=== PATIENT | female | born 1955 | race Caucasian/White ===

== ENCOUNTER 2017-03-11 13:31 | Inpatient (IN) ==
[2017-03-11] MEDS ORDERED: 0.9 % Sodium Chloride 1,000 ML IVC ONE (14:05)
--- NOTE | 2017-03-11 14:07 | Emergency Department Note ---
Disposition Clinical Impression: Hyponatremia, Hypokalemia, Altered mental status UTI (urinary tract infection) Qualifiers: Urinary tract infection type: acute cystitis Hematuria presence: without hematuria Qualified Code(s): N30.00 - Acute cystitis without hematuria Acute renal failure Qualifiers: Acute renal failure type: unspecified Qualified Code(s): N17.9 - Acute kidney failure, unspecified Disposition: Admitted As Inpatient Condition: Fair Altered Mental Status HPI - General Chief Complaint: ED General Medical Stated Complaint: Multiple complaints Time Seen by Provider: 03/11/17 13:48 Source: patient, family Limitations: no limitations Nursing Notes Reviewed: Yes Vital Signs Reviewed: Yes - History of Present Illness HPI Narrative: 61-year-old female presents to the ED with a chief complaint of difficulty walking, confusion and urinary incontinence. She has a history of coronary disease and hypertension. She used to be a heavy drinker but quit about 6 weeks ago. She reports taking very small steps and being off balance. She reports feeling generally weak with very little energy. She reports urinating on herself which is completely new. She has had intermittent fevers around 100 over the last 6 weeks. She denies any headache or blurry vision. She reports some nausea without vomiting or diarrhea. She denies any new neck or back pain. Denies any trauma or injury. She denies any chest pain or dyspnea. She is a daily smoker. Denies any current abdominal pain. - Related Data Home Medications Medication Instructions Recorded Confirmed Albuterol Sulfate [Albuterol 2 puff IH Q4HR PRN 08/12/16 03/11/17 Inhaler] Aspirin 81 mg PO DAILY 08/12/16 03/11/17 Atenolol [Tenormin] 50 mg PO DAILY 08/12/16 03/11/17 Clopidogrel [Plavix] 75 mg PO DAILY 08/12/16 03/11/17 Duloxetine HCl [Cymbalta] 60 mg PO DAILY 08/12/16 03/11/17 Ezetimibe [Zetia] 10 mg PO DAILY 08/12/16 03/11/17 Fenofibrate [Lofibra] 160 mg PO DAILY 08/12/16 03/11/17 Isosorbide MONOnitrate (24 HR) 30 mg PO DAILY 08/12/16 03/11/17 [Imdur] Levothyroxine [Synthroid] 50 mcg PO 0630 08/12/16 03/11/17 Nitroglycerin [Nitrostat] 0.4 mg SL Q5M PRN 08/12/16 03/11/17 Potassium Chloride 20 meq PO DAILY 08/12/16 03/11/17 Ranolazine [Ranexa] 1,000 mg PO BID 08/12/16 03/11/17 hydroCHLOROthiazide 25 mg PO DAILY 08/12/16 03/11/17 [Hydrochlorothiazide] Pravastatin Sodium [Pravachol] 20 mg PO HS 03/11/17 03/11/17 Allergies Allergy/AdvReac Type Severity Reaction Status Date / Time atorvastatin [From Lipitor] AdvReac Muscle Pain Verified 03/11/17 13:32 codeine AdvReac nausea Verified 03/11/17 13:32 vomiting All systems ED: reviewed and negative except as stated. Constitutional: Reports: fever Eyes: Denies: vision change Cardiovascular: Denies: chest pain, syncope Respiratory: Denies: cough, dyspnea Gastrointestinal: Reports: nausea. Denies: abdominal pain, vomiting, diarrhea, melena, hematochezia Genitourinary: Denies: urgency Musculoskeletal: Denies: back pain, neck pain Integumentary: Denies: rash Neurological: Reports: weakness (Generalized without any focality), abnormal gait. Denies: headache, numbness Endocrine: Reports: fatigue Past Medical History - Past Medical History Medical history: Reports: arthritis, coronary artery disease, hypertension, myocardial infarction, other Psychiatric history: Reports: anxiety, depression - Social History Smoking Status: Current every day smoker Smokeless Tobacco Status: No Alcohol use: Reports: occasionally Drug use: Reports: none Physical Exam General: Patient is awake, alert and oriented 3, she does appear slightly confused Cardiovascular: Regular rate and rhythm. S1, S2. No murmurs, rubs or gallops. Respiratory: Breath sounds clear bilaterally. No wheezing, rales or rhonchi. No resp distress Abdomen: Abdomen is soft without any guarding, rebound or rigidity. She has no tenderness anywhere on exam. She does have palpable liver in the right upper quadrant. No other palpable organomegaly. No hernias palpated. Normal bowel sounds throughout. Eyes: Pupils equally round and reactive to light, extraocular muscles intact, scleral icterus HENT: Normocephalic, no signs of head injury. No oral mucosal lesions. Moist mucous membranes Neuro: Cranial nerves intact. No motor or sensory deficit. Musculoskeletal: No joint tenderness or swelling Vascular: Normal DP and PT pulses bilaterally. Skin: Skin appears slightly jaundiced. No lesions or diaphoresis. Psych: Appropriate - General Limitations: no limitations General appearance: alert, in no apparent distress Course Course Narrative: Presents with unsteady gait, urinary incontinence and some confusion. CT scan of the head shows no intracranial abnormality. Particularly no evidence of normal pressure hydrocephalus. She was a drinker so we also considered Warnekes encephalopathy and gave her a dose of thiamine in the emergency department. There is no ophthalmoplegia on examination but she does seem a bit off balance and confused. She denies any headache, fevers or neck pain. Her labs reveal leukocytosis at 16,000. Blood pressure is borderline around 105 systolic responds to fluids. She is not tachypnic, tachycardic or febrile. Chest x-ray shows no evidence of infection. Urinalysis shows nitrite positive urine with too numerous to count white blood cells. She denies any flank pain or anything to suggest overlying ureterolithiasis. This may be causing her urinary incontinence. We started her on IV Rocephin, IV fluids in the emergency department. Patient is hyponatremic at 121 which could certainly cause some neurologic symptoms as well. Normal saline at this time. She is also hypokalemic with a potassium of 3.1. She is in acute renal insufficiency with a creatinine of 2.0. Patient certainly needs further monitoring and management for her renal insufficiency, leukocytosis with UTI, hyponatremia, hyperkalemia. I discussed with the on-call hospitalist nurse practitioner, Daria who accepts for admission. No further orders at this time Vital Signs Temperature 97.5 F L 03/11/17 13:33 Pulse Rate 82 03/11/17 13:33 Respiratory Rate 18 03/11/17 13:33 Blood Pressure 99/57 03/11/17 13:33 O2 Sat by Pulse Oximetry 0 03/11/17 13:33 Temperature 98.3 F 03/13/17 07:10 Pulse Rate 73 03/13/17 07:10 Respiratory Rate 16 03/13/17 07:10 Blood Pressure 94/49 03/13/17 07:10 O2 Sat by Pulse Oximetry 95 03/13/17 07:10 Oxygen Delivery Oxygen Delivery Room Air Altered Mental Status - Lab Data Result diagrams: 03/12/17 00:44 03/13/17 04:54 Lab Results 03/11/17 03/11/17 03/11/17 Range/Units 13:44 13:52 13:52 WBC 16.1 H (4.3-11.1) K/mcL RBC 3.46 L (3.82-4.97) M/mcL Hgb 11.0 L (11.5-15.4) g/dL Hct 31.1 L (35.3-44.9) % MCV 89.9 (83.0-100.0) fL MCH 31.8 (28.0-33.3) pg MCHC 35.4 (31.6-35.5) g/dL RDW 14.7 H (11.5-14.5) % Plt Count 451 H (140-400) K/mcL MPV 10.2 (9.4-12.4) fL Immature Gran % 3.8 (0-4) % Seg Neutrophils % 84.2 % Lymphocytes % 3.5 % Monocytes % 8.3 % Eosinophils % 0.1 % Basophils % 0.1 % Neutrophils # 13.6 H (1.6-8.9) K/mcL Lymphocytes # 0.6 (0.6-4.6) K/mcL Monocytes # 1.3 (0.0-1.3) K/mcL Eosinophils # 0.0 (0.0-0.6) K/mcL Basophils # 0.0 (0.0-0.2) K/mcL Sodium 121 L (136-145) mEq/L Potassium 3.1 L (3.5-4.5) mEq/L Chloride 89 L (98-109) mEq/L Carbon Dioxide 16 L (19-29) mEq/L BUN 47 H (7-20) mg/dL Creatinine 2.01 H (0.57-1.11) mg/dL Est GFR ( Amer) 31 L (> 60) Est GFR (Non-Af Amer) 25 L (> 60) BUN/Creatinine Ratio 23 (6-26) Glucose 100 H (70-99) mg/dL POC Glucose 89 (58-89) Calculated Osmolality 264 L (280-300) Calcium 8.8 (8.6-10.8) mg/dL Magnesium (1.6-2.6) mg/dL Total Bilirubin 1.3 H (0.2-1.2) mg/dL Direct Bilirubin 1.1 H (0.0-0.5) mg/dL Indirect Bilirubin 0.2 (0.0-1.2) mg/dL AST 15 (5-34) Units/L ALT 8 (0-55) Units/L Alkaline Phosphatase 163 H (38-126) Units/L Ammonia (18-72) mcmol/L Serum Total Protein 7.4 (6.0-8.3) g/dL Albumin 2.0 L (3.5-5.0) g/dL Globulin 5.4 H (2.4-3.5) g/dL Albumin/Globulin Ratio 0.4 L (1.1-2.2) TSH (0.350-4.840) mcIU/mL Urine Color (Yellow) Urine Clarity (Clear) Urine pH (5.0-8.0) pH Units Ur Specific [place] (1.010-1.025) Urine Protein (Neg-Trace) mg/dL Urine Glucose (UA) (Normal) mg/dL Urine Ketones (Negative) mg/dL Urine Blood (Negative) Urine Nitrite (Negative) Urine Bilirubin (Negative) Urine Urobilinogen (Normal) mg/dL Ur Leukocyte Esterase (Negative) Urine Microscopic RBC (0-3) per hpf Urine Microscopic WBC (0-3) per hpf Ur Squamous Epith Cells (None-Few) per lpf Urine Bacteria (None-Few) per hpf Ur Culture Indicated? (NO) 03/11/17 03/11/17 03/11/17 Range/Units 13:52 16:59 20:08 WBC (4.3-11.1) K/mcL RBC (3.82-4.97) M/mcL Hgb (11.5-15.4) g/dL Hct (35.3-44.9) % MCV (83.0-100.0) fL MCH (28.0-33.3) pg MCHC (31.6-35.5) g/dL RDW (11.5-14.5) % Plt Count (140-400) K/mcL MPV (9.4-12.4) fL Immature Gran % (0-4) % Seg Neutrophils % % Lymphocytes % % Monocytes % % Eosinophils % % Basophils % % Neutrophils # (1.6-8.9) K/mcL Lymphocytes # (0.6-4.6) K/mcL Monocytes # (0.0-1.3) K/mcL Eosinophils # (0.0-0.6) K/mcL Basophils # (0.0-0.2) K/mcL Sodium 122 L (136-145) mEq/L Potassium 2.8 L (3.5-4.5) mEq/L Chloride 95 L (98-109) mEq/L Carbon Dioxide 12 L (19-29) mEq/L BUN 43 H (7-20) mg/dL Creatinine 1.75 H (0.57-1.11) mg/dL Est GFR ( Amer) 36 L (> 60) Est GFR (Non-Af Amer) 30 L (> 60) BUN/Creatinine Ratio 25 (6-26) Glucose 103 H (70-99) mg/dL POC Glucose (58-89) Calculated Osmolality 265 L (280-300) Calcium 7.9 L (8.6-10.8) mg/dL Magnesium 0.8 L (1.6-2.6) mg/dL Total Bilirubin (0.2-1.2) mg/dL Direct Bilirubin (0.0-0.5) mg/dL Indirect Bilirubin (0.0-1.2) mg/dL AST (5-34) Units/L ALT (0-55) Units/L Alkaline Phosphatase (38-126) Units/L Ammonia 14 L (18-72) mcmol/L Serum Total Protein (6.0-8.3) g/dL Albumin (3.5-5.0) g/dL Globulin (2.4-3.5) g/dL Albumin/Globulin Ratio (1.1-2.2) TSH (0.350-4.840) mcIU/mL Urine Color Yellow (Yellow) Urine Clarity Turbid A (Clear) Urine pH 6.0 (5.0-8.0) pH Units Ur Specific [place] 1.011 (1.010-1.025) Urine Protein 30 H (Neg-Trace) mg/dL Urine Glucose (UA) Normal (Normal) mg/dL Urine Ketones Negative (Negative) mg/dL Urine Blood Small H (Negative) Urine Nitrite Positive A (Negative) Urine Bilirubin Negative (Negative) Urine Urobilinogen Normal (Normal) mg/dL Ur Leukocyte Esterase Large H (Negative) Urine Microscopic RBC 0-3 (0-3) per hpf Urine Microscopic WBC TNTC H (0-3) per hpf Ur Squamous Epith Cells Few (None-Few) per lpf Urine Bacteria Many H (None-Few) per hpf Ur Culture Indicated? YES A (NO) 03/11/17 03/11/17 Range/Units 20:08 21:51 WBC (4.3-11.1) K/mcL RBC (3.82-4.97) M/mcL Hgb (11.5-15.4) g/dL Hct (35.3-44.9) % MCV (83.0-100.0) fL MCH (28.0-33.3) pg MCHC (31.6-35.5) g/dL RDW (11.5-14.5) % Plt Count (140-400) K/mcL MPV (9.4-12.4) fL Immature Gran % (0-4) % Seg Neutrophils % % Lymphocytes % % Monocytes % % Eosinophils % % Basophils % % Neutrophils # (1.6-8.9) K/mcL Lymphocytes # (0.6-4.6) K/mcL Monocytes # (0.0-1.3) K/mcL Eosinophils # (0.0-0.6) K/mcL Basophils # (0.0-0.2) K/mcL Sodium (136-145) mEq/L Potassium (3.5-4.5) mEq/L Chloride (98-109) mEq/L Carbon Dioxide (19-29) mEq/L BUN (7-20) mg/dL Creatinine (0.57-1.11) mg/dL Est GFR ( Amer) (> 60) Est GFR (Non-Af Amer) (> 60) BUN/Creatinine Ratio (6-26) Glucose (70-99) mg/dL POC Glucose 142 H (58-89) Calculated Osmolality (280-300) Calcium (8.6-10.8) mg/dL Magnesium (1.6-2.6) mg/dL Total Bilirubin (0.2-1.2) mg/dL Direct Bilirubin (0.0-0.5) mg/dL Indirect Bilirubin (0.0-1.2) mg/dL AST (5-34) Units/L ALT (0-55) Units/L Alkaline Phosphatase (38-126) Units/L Ammonia (18-72) mcmol/L Serum Total Protein (6.0-8.3) g/dL Albumin (3.5-5.0) g/dL Globulin (2.4-3.5) g/dL Albumin/Globulin Ratio (1.1-2.2) TSH 2.719 (0.350-4.840) mcIU/mL Urine Color (Yellow) Urine Clarity (Clear) Urine pH (5.0-8.0) pH Units Ur Specific [place] (1.010-1.025) Urine Protein (Neg-Trace) mg/dL Urine Glucose (UA) (Normal) mg/dL Urine Ketones (Negative) mg/dL Urine Blood (Negative) Urine Nitrite (Negative) Urine Bilirubin (Negative) Urine Urobilinogen (Normal) mg/dL Ur Leukocyte Esterase (Negative) Urine Microscopic RBC (0-3) per hpf Urine Microscopic WBC (0-3) per hpf Ur Squamous Epith Cells (None-Few) per lpf Urine Bacteria (None-Few) per hpf Ur Culture Indicated? (NO) Attestation Statement - Attestation Attestation: I examined this patient and my medical decision-making was reviewed with the Resident Physician. I agree with the documented findings, disposition and treatment plan as described.
[2017-03-11 14:16] LABS: Basophils % 0.1 %; Eosinophils % 0.1 %; Hematocrit 31.1 % (35.3-44.9); Immature Granulocytes % 3.8 % (0-4); Lymphocytes # 0.6 K/mcL (0.6-4.6); Lymphocytes % 3.5 %; Mean Corpuscular HGB Conc 35.4 g/dL (31.6-35.5); Mean Corpuscular Hemoglobin 31.8 pg (28.0-33.3); Mean Corpuscular Volume 89.9 fL (83.0-100.0); Mean Platelet Volume 10.2 fL (9.4-12.4); Monocytes # 1.3 K/mcL (0.0-1.3); Monocytes % 8.3 %; Neutrophils # 13.6 K/mcL (1.6-8.9); Platelet Count 451 K/mcL (140-400); Red Blood Count 3.46 M/mcL (3.82-4.97); Red Cell Distribution Width 14.7 % (11.5-14.5); Segmented Neutrophils % 84.2 %
[2017-03-11 14:23] LABS: Albumin/Globulin Ratio 0.4 (1.1-2.2); Bilirubin,Direct 1.1 mg/dL (0.0-0.5); Bilirubin,Indirect 0.2 mg/dL (0.0-1.2); Bilirubin,Total 1.3 mg/dL (0.2-1.2); Calcium 8.8 mg/dL (8.6-10.8); Globulin 5.4 g/dL (2.4-3.5); Potassium 3.1 mEq/L (3.5-4.5); Total Protein 7.4 g/dL (6.0-8.3)
[2017-03-11] MEDS: Thiamine (B-1) 100 MG TABLET PO SCH ×2 (16:56→20:41)
[2017-03-11 17:10] LABS: Bilirubin,Urine Negative (Negative); Blood,Urine Small (Negative); Clarity,Urine Turbid (Clear); Color,Urine Yellow (Yellow); Glucose,Urine (UA) Normal (Normal); Ketones,Urine Negative (Negative); Leukocyte Esterase,Urine Large (Negative); Nitrite,Urine Positive (Negative); Protein,Urine 30 mg/dL (Neg-Trace); Specific Gravity,Urine 1.011 (1.010-1.025); Urobilinogen,Urine Normal (Normal)
[2017-03-11 17:20] LABS: Bacteria,Urine Many per hpf (None-Few); Squamous Epithelial Cell,Urine Few per lpf (None-Few); WBC,Urine TNTC per hpf (0-3)
[2017-03-11 17:22] LABS: RBC,Urine 0-3 per hpf (0-3)
[2017-03-11] MEDS ORDERED: 0.9 % Sodium Chloride 1,000 ML IVC SCH (17:30)
[2017-03-11] MEDS ORDERED: Acetaminophen 325 MG TABLET PO STA (17:37)
[2017-03-11] MEDS ORDERED: Naloxone 0.4 MG/ML INJ IVP PRN (19:45)
[2017-03-11] MEDS ORDERED: diazePAM 10 MG/2 ML SYRINGE IVP PRN (19:52)
[2017-03-11] MEDS ORDERED: Acetaminophen 325 MG TABLET PO PRN (19:52)
[2017-03-11] MEDS ORDERED: Ondansetron 4 MG/2 ML VIAL IVP PRN (19:52)
[2017-03-11] MEDS ORDERED: Nitroglycerin 0.4 MG TAB.SUBL SL PRN (20:00)
--- NOTE | 2017-03-11 20:08 | Internal Med History&Physical ---
Date of Encounter: 03/11/17 Time of Encounter: 19:35 Assessment and Plan (1) Hyponatremia Current visit: Yes Status: Acute 1. Essentially no old labs to compare except one level in August, --> 134. 2. I suspect this is multi-factorial -- likely due to HCTZ and alcohol abuse. 3. Will check STAT level and follow closely. 4. Stop HCTZ. 5. Regular diet and monitor sodium level with serial BMP's. 6. May need to proceed with CT chest given smoking history and if sodium does not correct by stopping HCTZ. Will hold off on CT chest for now due to TANVI and need for IV contrast. (2) Weakness Current visit: Yes Status: Acute 1. Monitor closely and may need PT/OT consults in the morning. 2. Likely due to hyponatremia and alcohol abuse. 3. Will order MRI brain in the morning to further evaluate. Recent MRI brain negative (June,). (3) Acute kidney injury Current visit: Yes Status: Acute 1. Pt received saline bolus in ER. 2. Will hold off on further fluids and monitor I/O off HCTZ. 3. If kidney function does not improve, will need nephrology consult. (4) UTI (urinary tract infection) Current visit: Yes Status: Acute 1. Urine culture received in lab. 2. Continue Rocephin daily and adjust per culture results. Qualifiers: Urinary tract infection type: acute cystitis Hematuria presence: without hematuria Qualified Code(s): N30.00 - Acute cystitis without hematuria (5) Alcohol abuse Current visit: Yes Status: Acute 1. Will start on CIWA protocol. 2. MVI, thiamine, Folate. 3. Seizure precautions. (6) DVT prophylaxis Current visit: Yes Status: Acute 1. Heparin SQ. Internal Medicine - H&P: HPI Chief complaint: ataxia; weakness; falling Admitted From: Emergency Dept Plans for Post Hospital Care: Home History of present illness: Ms. Moreira is a 61 year old female who presents with a 3 week history of weakness , frequent falling, and occasional ataxia. Because of persistent symptoms, she came to the ER today for evaluation. She was found to have evidence of UTI, hyponatremia, and leukocytosis. She was given a dose of antibiotics, fluid bolus, and underwent CT scan of the head and chest x-ray. Findings were unremarkable otherwise. She was subsequently admitted to hospitalist service. Upon my assessment of the patient, she is alert, oriented, and in no distress. She does admit to above history. She denies any history of seizures, fevers, focal weakness, numbness, or paralysis. She used to drink alcohol but quit about 2 months ago. She denies any heavy use. However, upon further questioning, she drank about 2-3 drinks per night every night for many years. I suspect her hyponatremia very well may be due to her alcohol abuse as well as her thiazide diuretic. She has been on this diuretic for quite some time and denies any prior history of hyponatremia. She is also a long-time smoker and appears to be euvolemic. Chest x-ray was negative, but she still may warrant CT of the chest rule out underlying malignancy. Past Med Surg Social Fam HX - Past Medical History Attestation: Yes The following information was validated with the patient. Source: patient, old records reviewed Medical history: arthritis, coronary artery disease, hypertension, myocardial infarction Psychiatric history: anxiety, depression - Past Surgical History Surgical History: angioplasty/stent, carotid endarterectomy - Social History Smoking Status: Current every day smoker Smokeless Tobacco Status: No Alcohol use: heavy (quit about 2 months ago) Drug use: none Current living situation: Home, With Family Activity Level: Independent ambulation Recent Out of Country Travel Within the Last 8 Weeks: No - Family History Mother Hx Family Cardiac Disorders: Yes (Hypertension) Hx Family Cancer: Yes (Breast cancer) Father Hx Family Neurologic Disorders: Yes (stroke) Internal Medicine - H&P: Meds Albuterol Sulfate [Albuterol Inhaler] 2 puff IH Q4HR PRN 08/12/16 [History] Aspirin 81 mg PO DAILY 08/12/16 [History] Atenolol [Tenormin] 50 mg PO DAILY 08/12/16 [History] Clopidogrel [Plavix] 75 mg PO DAILY 08/12/16 [History] Duloxetine HCl [Cymbalta] 60 mg PO DAILY 08/12/16 [History] Ezetimibe [Zetia] 10 mg PO DAILY 08/12/16 [History] Fenofibrate [Lofibra] 160 mg PO DAILY 08/12/16 [History] Isosorbide MONOnitrate (24 HR) [Imdur] 30 mg PO DAILY 08/12/16 [History] Levothyroxine [Synthroid] 50 mcg PO 0630 08/12/16 [History] Nitroglycerin [Nitrostat] 0.4 mg SL Q5M PRN 08/12/16 [History] Potassium Chloride 20 meq PO DAILY 08/12/16 [History] Ranolazine [Ranexa] 1,000 mg PO BID 08/12/16 [History] hydroCHLOROthiazide [Hydrochlorothiazide] 25 mg PO DAILY 08/12/16 [History] Pravastatin Sodium [Pravachol] 20 mg PO HS 03/11/17 [History] Allergies atorvastatin [From Lipitor] Adverse Reaction (Verified 03/11/17 13:32) Muscle Pain codeine Adverse Reaction (Verified 03/11/17 13:32) nausea vomiting - Constitutional Constitutional: falls, weakness, no chills, no fever(s) - EENT Eyes: no blurry vision, no change in vision Ears: no ear pain, no tinnitus Nose, mouth and throat: no nasal congestion, no nasal discharge, no sinus pain, no sinus pressure, no sore throat - Cardiovascular Cardiovascular ROS IM: no chest pain, no diaphoresis, no dyspnea, no dyspnea on exertion, no edema, no lightheadedness, no syncope - Respiratory Respiratory: no cough, no dyspnea, no hemoptysis, no wheezing, no chest congestion, no excessive phlegm production - Gastrointestinal Gastrointestinal: no diarrhea, no hematemesis, no hematochezia, no melena, no nausea, no vomiting - Genitourinary Genitourinary: dysuria, no flank pain, no hematuria - Musculoskeletal Musculoskeletal ROS IM: muscle cramps, muscle weakness, no arthralgias, no back pain, no myalgias, no numbness, no stiffness - Integumentary Integumentary IM: no rash, no jaundice - Neurological Neurological ROS: abnormal gait, frequent falls (infrequent actually), memory loss, weakness, no confusion, no disequilibrium, no dizziness, no focal weakness , no headache(s), no loss of vision - Psychiatric Psychiatric: no anxiety, no depression - Endocrine Endocrine IM: no cold intolerance, no heat intolerance, no polydipsia, no polyphagia, no polyuria - Hematologic/Lymphatic Hematologic/Lymphatic: easy bruising, no lymphadenopathy - Allergic/Immunologic Allergic/Immunologic: no GI upset with certain foods - Constitutional Vitals: Temp Pulse Resp BP Pulse Ox 97.5 F L 74 16 81/43 100 03/11/17 13:33 03/11/17 16:57 03/11/17 18:09 03/11/17 18:09 03/11/17 16:57 General appearance: Present: cooperative, A&O X 3, pleasant, no acute distress, answers questions appropriately Exam: appears euvolemic - Head Head exam: Present: atraumatic, normal inspection - Expanded Head Exam Head exam expanded: Absent: abrasion, contusion, general tenderness - Eye Eye exam: Present: EOMI, normal appearance, PERRL. Absent: scleral icterus Pupils: Present: normal accommodation - ENT ENT exam: Present: mucous membranes moist, normal exam, normal external ear exam , normal oropharynx - Neck Neck exam general surgery: Present: full ROM, normal inspection, supple. Absent : lymphadenopathy, tenderness, nuchal rigidity - Expanded Neck Exam Neck exam: Absent: carotid bruit - Respiratory Respiratory exam: Present: CTAB. Absent: chest wall tenderness, rales, rhonchi , wheezes - Cardiovascular Cardiovascular exam: Present: RRR, +S1, +S2, systolic murmur (grade 2). Absent : diastolic murmur, JVD - GI/Abdominal GI/Abdominal exam: Present: soft. Absent: hepatomegaly, splenomegaly - Extremities Exam Extremities exam: Present: full ROM, normal capillary refill, warm, radial pulses palpable and symetrical. Absent: calf tenderness, joint swelling, pedal edema, tenderness - Back Exam Back exam: Present: normal inspection. Absent: CVA tenderness (L), CVA tenderness (R) - Neurological Exam Neurological exam: Present: abnormal gait (weak and unsteady), alert, CN II-XII intact, oriented X3, no focal deficits, strengths equal and symetr throughout Additional comments: some difficulty with finger to nose testing and heel to neri testing - Psychiatric Psychiatric exam: Present: normal affect, normal mood - Skin Skin exam: Present: dry, warm. Absent: erythema, rash Internal Med - H&P Results - Labs CBC & Chem 7: 03/11/17 13:52 03/11/17 13:52 - EKG Data -: EKG Interpreted by Myself EKG shows normal: sinus rhythm - EKG Data EKG comments: 03/11/17 20:15 sinus rhythm with no acute ST-T changes - Diagnostic Studies Chest x-ray Status: image reviewed by me (negative)
[2017-03-11 20:31] LABS: Calcium 7.9 mg/dL (8.6-10.8); Magnesium 0.8 mg/dL (1.6-2.6); Potassium 2.8 mEq/L (3.5-4.5)
[2017-03-11] MEDS ORDERED: Magnesium Sulfate 2 GM in D5% in Water 100 ML IVPB ONE (20:33)
[2017-03-11] MEDS: Vitamin B Complex/Vit C/Vit E 1 EACH TABLET PO SCH (20:40)
[2017-03-11] MEDS: Folic Acid 1 MG TABLET PO SCH (20:40)
[2017-03-11] MEDS: Ranolazine 500 MG TAB.ER.12H PO SCH (20:40)
[2017-03-11] MEDS: *HR* Heparin 5,000 UNIT/ML VIAL SQ SCH (20:40)
[2017-03-11] MEDS: (Pravastatin Sodium [Pravachol] 20 MG) PO SCH (20:41)
[2017-03-12 03:47] LABS: Activated Partial Thrombo Time 28.6 Seconds (26.0-36.0); INR 1.5; Prothrombin Time 15.9 Seconds (9.4-12.1)
[2017-03-12 05:18] LABS: Basophils % 0.2 %; Eosinophils % 0.1 %; Hematocrit 28.5 % (35.3-44.9); Hemoglobin 9.9 g/dL (11.5-15.4); Lymphocytes # 0.5 K/mcL (0.6-4.6); Lymphocytes % 2.8 %; Mean Corpuscular HGB Conc 34.7 g/dL (31.6-35.5); Mean Corpuscular Hemoglobin 31.8 pg (28.0-33.3); Mean Corpuscular Volume 91.6 fL (83.0-100.0); Mean Platelet Volume 10.8 fL (9.4-12.4); Monocytes # 1.4 K/mcL (0.0-1.3); Monocytes % 7.4 %; Neutrophils # 16.2 K/mcL (1.6-8.9); Platelet Count 439 K/mcL (140-400); Red Blood Count 3.11 M/mcL (3.82-4.97); Red Cell Distribution Width 14.8 % (11.5-14.5); Segmented Neutrophils % 87.5 %
[2017-03-12 05:23] LABS: Chol/HDL Ratio 10.4 (0-4.9); Magnesium 1.8 mg/dL (1.6-2.6)
[2017-03-12 05:54] LABS: Calcium 8.4 mg/dL (8.6-10.8); Potassium 3.1 mEq/L (3.5-4.5)
[2017-03-12 06:05] LABS: Platelet Estimate Increased (Normal); Reactive Lymphocytes Present (Not Present)
[2017-03-12] MEDS: *HR* Heparin 5,000 UNIT/ML VIAL SQ SCH ×2 (06:47→17:49)
[2017-03-12 07:31] LABS: Calcium 8.5 mg/dL (8.6-10.8); Potassium 3.4 mEq/L (3.5-4.5)
[2017-03-12] MEDS: Aspirin 81 MG TAB.CHEW PO SCH (09:20)
[2017-03-12] MEDS: Folic Acid 1 MG TABLET PO SCH (09:20)
[2017-03-12] MEDS: Isosorbide MONOnitrate (24 HR) 30 MG TAB.ER.24H PO SCH (09:20)
[2017-03-12] MEDS: Vitamin B Complex/Vit C/Vit E 1 EACH TABLET PO SCH (09:21)
[2017-03-12] MEDS: Ranolazine 500 MG TAB.ER.12H PO SCH ×2 (09:21→21:00)
[2017-03-12] MEDS: (Ezetimibe [Zetia] 10 MG) PO SCH (09:22)
[2017-03-12] MEDS: Thiamine (B-1) 100 MG TABLET PO SCH ×2 (09:22→10:34)
[2017-03-12] MEDS: Fenofibrate 54 MG TABLET PO SCH (09:22)
[2017-03-12] MEDS: 0.9 % Sodium Chloride 1,000 ML IVC SCH ×2 (09:24→21:03)
--- NOTE | 2017-03-12 09:55 | ECHO - Doppler Report ---
Echocardiogram Name: Krysten Moreira Date of Study: 03/12/2017 Date: 1955 Ht: 64.0 in Medical Record#: [id number] Age: 61 Wt: 143.0 lb Gender: Female BSA: 1.7 Order #: [id number] Location: [facility] Room #: [id number] Reading Physician: Tai Thomas DO, SAMARIA GARCIA Batch Freezer Operator: Debra Walker RVT Ordering Physician: Kirk Chang MD Primary Physician: Maren Perkins MD Indications: Murmur, Coronary artery disease, near syncope Impressions: LVEF 60-65%. Normal LV chamber size, wall thickness and function. Mild left ventricular diastolic dysfunction. Normal right ventricular structure and function. No evidence of pulmonary hypertension. No significant valvular dysfunction. Left Ventricular Wall Motion: Rest Echo Findings All wall segments showed normal motion. Findings: Study Quality * Technically adequate exam. ECG Findings * Normal sinus rhythm. Left Ventricle * LVEF 60-65%. * Normal LV chamber size, wall thickness and function. * Mild left ventricular diastolic dysfunction. Right Ventricle * Normal right ventricular structure and function. Left Atrium * Mildly dilated left atrium. Right Atrium * Normal right atrial size. Interatrial Septum * Interatrial septum not well evaluated. Aortic Valve * Trileaflet aortic valve with normal function. * No aortic regurgitation. * No aortic stenosis. Mitral Valve * Normal mitral valve structure and function. * No mitral regurgitation. * No mitral stenosis. Tricuspid Valve * Normal tricuspid valve structure and function. * Trace tricuspid regurgitation. * No evidence of pulmonary hypertension. Pulmonic Valve * Pulmonic valve not well visualized. * No pulmonic regurgitation. Aorta * Normally sized aortic root. IVC * Normal IVC dimensions and inspiratory collapse. Pulmonary Artery * Normal visualized portions of the main pulmonary artery. Pericardium * There is a trivial pericardial effusion present. History Hypertension Hypercholesteremia History of CAD/PTCA Myocardial Infarction Measurements: BP: 106/ 57 2D Normal Values RVIDd: 2.30 cm <2.7 cm IVSd: .80 cm 0.6 - 1.0 cm LVIDd: 4.70 cm 3.7 - 5.6 cm LVPWd: 1.10 cm 0.6 - 1.1 cm LVIDs: 4.00 cm 1.5 - 3.6 cm AO: 3.20 cm < 4.0 cm LA: 3.10 cm 2.0 - 4.0cm %FS: 14.90 cm >25 % LA volume: 34 Mitral Valve Peak E:.90 m/sec Peak A:.94 m/sec E/A Ratio:1 Peak E' Lat George:6.92 cm/s Peak E' Med George:4.68 cm/s E/E' Lat Ratio:13 E/E' Med Ratio:19.2 Tricuspid Valve TV Regurg Peak Grad: 21.00mmHg TV Regurg Peak George: 2.29m/sec Updated by Tai Thomas DO, JOSE, SAMARIA, JUWAN on 03/12/2017 9:46:31 AM electronically signed on 03/12/2017 9:49:22 AM with status of Final Wall Motion Yañez: 1=Normal, 2=Hypokinesis, 3=Akinesis, 4=Dyskinesis, 5=Aneurysmal, 6=Hyperkinetic, X=Not Visualized (Blank)=Missing
[2017-03-12 11:14] LABS: Folate 8.5 ng/mL (7.0-31.4)
--- NOTE | 2017-03-12 12:22 | Internal Med Progress Note ---
Date of Encounter: 03/12/17 Time of Encounter: 12:20 - Assessment and plan (1) Ataxia Current Visit: Yes Status: Acute Assessment and plan: reports that she is very unstable when she walks and falls backwards reports that she quit drinking few weeks ago. unsure if she has really quit and this may be 2/2 alcohol intoxication, MRI has been ordered to r/o any central causes however differentials to consider would be Wernicke/Korsakoff. will send vit b12 and folate levels. order PT/OT. (2) Hyponatremia Current Visit: Yes Status: Acute Assessment and plan: possible 2/2 alcohol abuse, this may be chronic. no neuro changes will conitnue with IV normal saline for now and monitor chem (3) UTI (urinary tract infection) Current Visit: Yes Status: Acute Assessment and plan: UTI noted, possible causing leucocytosis and chills started on ceftriaxone, will follow cx results. Qualifiers: Urinary tract infection type: acute cystitis Hematuria presence: without hematuria Qualified Code(s): N30.00 - Acute cystitis without hematuria (4) Acute kidney injury Current Visit: Yes Status: Acute Assessment and plan: possible pre renal, she also has UTI will order renal US< creat has relatively improved. will monitor.continue IVF (5) Hypokalemia Current Visit: Yes Status: Acute Assessment and plan: better today, will supplement and monitor - Time Spent With Patient 25 - 35 minutes - Subjective Interval history: seen at the bedside, admitted for ataxic movement. she is c/o lower abdominnal pain and chills. denies any fever, she admits to quitting alcohol 4-6 weeks ago. no h.o LOC ,seizures. - Constitutional Vitals: Temp Pulse Resp BP Pulse Ox 98.1 F 90 20 120/70 96 03/12/17 11:00 03/12/17 11:00 03/12/17 11:00 03/12/17 11:00 03/12/17 11:00 General appearance: Present: cooperative, A&O X 3, pleasant, no acute distress, answers questions appropriately Exam: neck- supple chest- b/l clear, no added sounds CVS-s1 and s2, no mr/g abd-soft, non tender, bs are present ext- no edema neuro- no focal defecits, no weakness of ext. Internal Medicine: Result - Labs CBC & Chem 7: 03/12/17 00:44 03/12/17 05:09 Labs: Short CBC 03/12/17 Range/Units 00:44 WBC 18.5 H (4.3-11.1) K/mcL Hgb 9.9 L (11.5-15.4) g/dL Hct 28.5 L (35.3-44.9) % Plt Count 439 H (140-400) K/mcL Neutrophils # 16.2 H (1.6-8.9) K/mcL BMP 03/12/17 03/12/17 00:44 05:09 Sodium 124 L 122 L Potassium 3.4 L 3.1 L Chloride 95 L 97 L Carbon Dioxide 12 L 12 L BUN 43 H 40 H Creatinine 1.85 H 1.64 H Glucose 102 H 145 H Calcium 8.5 L 8.4 L - ABG Interpretation ABG results: PT/INR, D-dimer PT 15.9 Seconds (9.4-12.1) H 03/12/17 00:44 Consult Discharge Plan - Plan Referrals: Maren Perkins MD [Primary Care Provider] -
[2017-03-12 12:49] LABS: Calcium 8.6 mg/dL (8.6-10.8); Potassium 3.3 mEq/L (3.5-4.5)
[2017-03-12 18:07] LABS: Calcium 8.6 mg/dL (8.6-10.8); Potassium 3.6 mEq/L (3.5-4.5)
[2017-03-12] MEDS: *HR* HYDROcodone/Acet 5/325 mg TABLET PO PRN (19:53)
[2017-03-12] MEDS: (Pravastatin Sodium [Pravachol] 20 MG) PO SCH (19:54)
[2017-03-13 01:21] LABS: Calcium 8.5 mg/dL (8.6-10.8); Potassium 3.4 mEq/L (3.5-4.5)
[2017-03-13] MEDS: 0.9 % Sodium Chloride 1,000 ML IVC SCH ×3 (03:50→23:13)
[2017-03-13 05:27] LABS: Calcium 8.8 mg/dL (8.6-10.8); Potassium 3.6 mEq/L (3.5-4.5)
[2017-03-13] MEDS: *HR* Heparin 5,000 UNIT/ML VIAL SQ SCH ×2 (05:42→18:18)
[2017-03-13] MEDS: *HR* HYDROcodone/Acet 5/325 mg TABLET PO PRN ×3 (05:42→20:09)
[2017-03-13] MEDS: Aspirin 81 MG TAB.CHEW PO SCH (08:39)
[2017-03-13] MEDS: Folic Acid 1 MG TABLET PO SCH (08:39)
[2017-03-13] MEDS: Ranolazine 500 MG TAB.ER.12H PO SCH ×2 (08:39→20:10)
[2017-03-13] MEDS: Fenofibrate 54 MG TABLET PO SCH (08:41)
[2017-03-13] MEDS: (Ezetimibe [Zetia] 10 MG) PO SCH (08:42)
[2017-03-13] MEDS: Vitamin B Complex/Vit C/Vit E 1 EACH TABLET PO SCH (08:42)
[2017-03-13] MEDS: Thiamine (B-1) 100 MG TABLET PO SCH (08:42)
[2017-03-13] MEDS: Isosorbide MONOnitrate (24 HR) 30 MG TAB.ER.24H PO SCH (08:42)
[2017-03-13 10:17] LABS: Basophils % 0.1 %; Eosinophils % 0.1 %; Hematocrit 26.8 % (35.3-44.9); Hemoglobin 9.1 g/dL (11.5-15.4); Immature Granulocytes % 2.7 % (0-4); Lymphocytes # 0.7 K/mcL (0.6-4.6); Lymphocytes % 4.2 %; Mean Corpuscular Hemoglobin 31.6 pg (28.0-33.3); Mean Corpuscular Volume 93.1 fL (83.0-100.0); Mean Platelet Volume 10.2 fL (9.4-12.4); Monocytes # 1.2 K/mcL (0.0-1.3); Monocytes % 6.8 %; Platelet Count 468 K/mcL (140-400); Red Blood Count 2.88 M/mcL (3.82-4.97); Red Cell Distribution Width 15.2 % (11.5-14.5); Segmented Neutrophils % 86.1 %
--- NOTE | 2017-03-13 13:41 | Internal Med Progress Note ---
Date of Encounter: 03/13/17 Time of Encounter: 13:39 - Assessment and plan (1) Ataxia Current Visit: Yes Status: Acute Assessment and plan: reports that she was very unstable when she walks and falls backwards, however she says she is better now and is walking to the bathroom, clinically better seen by PT?OT and has no special needs at [place]. reports that she quit drinking few weeks ago. unsure if she has really quit and this may be 2/2 alcohol intoxication, MRI showed central causes vit b12 and folate levels are not low (2) Hyponatremia Current Visit: Yes Status: Acute Assessment and plan: possible 2/2 alcohol abuse, this may be chronic. no neuro changes will conitnue with IV normal saline for now and monitor chem. na better today at 127 (3) UTI (urinary tract infection) Current Visit: Yes Status: Acute Assessment and plan: UTI noted, possible causing leucocytosis and chills started on ceftriaxone, growing gram neg rods, will await final results as she has persistent leucocytosis. Qualifiers: Urinary tract infection type: acute cystitis Hematuria presence: without hematuria Qualified Code(s): N30.00 - Acute cystitis without hematuria (4) Acute kidney injury Current Visit: Yes Status: Acute Assessment and plan: possible pre renal, she also has UTI renal US with no abnormalities, creat has relatively improved. will monitor.continue IVF (5) Hypokalemia Current Visit: Yes Status: Acute Assessment and plan: better today, will supplement and monitor - Time Spent With Patient 25 - 35 minutes - Subjective Interval history: seen at the bedside, admitted for ataxic movement. she reports that she feels much better today and is able to walk to the bathroom. denies any fever, she admits to quitting alcohol 4-6 weeks ago. no h.o LOC ,seizures. - Constitutional Vitals: Temp Pulse Resp BP Pulse Ox 98.0 F 67 16 91/52 95 03/13/17 10:57 03/13/17 11:11 03/13/17 11:11 03/13/17 11:11 03/13/17 11:11 General appearance: Present: cooperative, A&O X 3, pleasant, no acute distress, answers questions appropriately Exam: neck- supple chest- b/l clear, no added sounds CVS-s1 and s2, no mr/g abd-soft, non tender, bs are present ext- no edema neuro- no focal defecits, no weakness of ext. Internal Medicine: Result - Labs CBC & Chem 7: 03/13/17 09:53 03/13/17 04:54 Labs: Short CBC 03/13/17 Range/Units 09:53 WBC 17.5 H (4.3-11.1) K/mcL Hgb 9.1 L (11.5-15.4) g/dL Hct 26.8 L (35.3-44.9) % Plt Count 468 H (140-400) K/mcL Neutrophils # 15.0 H (1.6-8.9) K/mcL BMP 03/12/17 03/13/17 03/13/17 17:43 00:36 04:54 Sodium 123 L 123 L 127 L Potassium 3.6 3.4 L 3.6 Chloride 96 L 98 101 Carbon Dioxide 17 L 17 L 16 L BUN 34 H 32 H 31 H Creatinine 1.40 H 1.33 H 1.24 H Glucose 100 H 102 H 94 Calcium 8.6 8.5 L 8.8 - ABG Interpretation ABG results: PT/INR, D-dimer PT 15.9 Seconds (9.4-12.1) H 03/12/17 00:44 - Impressions Impressions Brain MRI 03/12/17 09:00 IMPRESSION: 1. No acute intracranial abnormality. No acute infarct. 2. Minimal global parenchymal volume loss with chronic microvascular ischemic change. D/ / Que Landaverde MD / Que Landaverde MD Interpreting Provider: Que Landaverde MD Retroperitoneum Ultrasound 03/12/17 16:00 IMPRESSION: Mild left-sided hydronephrosis No hydronephrosis on right D/ / Umang Alexander MD / Umang Alexander MD Interpreting Provider: Umang Alexander MD Consult Discharge Plan - Plan Referrals: Maren Perkins MD [Primary Care Provider] - 03/24/17 2:40 pm
[2017-03-13] MEDS: (Pravastatin Sodium [Pravachol] 20 MG) PO SCH (20:02)
[2017-03-14] MEDS: *HR* HYDROcodone/Acet 5/325 mg TABLET PO PRN (05:55)
[2017-03-14] MEDS: *HR* Heparin 5,000 UNIT/ML VIAL SQ SCH (05:55)
[2017-03-14 08:28] LABS: Basophils % 0.2 %; Eosinophils % 0.1 %; Hematocrit 27.4 % (35.3-44.9); Hemoglobin 9.3 g/dL (11.5-15.4); Immature Granulocytes % 2.6 % (0-4); Lymphocytes # 0.8 K/mcL (0.6-4.6); Lymphocytes % 4.6 %; Mean Corpuscular HGB Conc 33.9 g/dL (31.6-35.5); Mean Corpuscular Hemoglobin 31.5 pg (28.0-33.3); Mean Corpuscular Volume 92.9 fL (83.0-100.0); Mean Platelet Volume 9.8 fL (9.4-12.4); Monocytes # 1.1 K/mcL (0.0-1.3); Monocytes % 6.5 %; Neutrophils # 14.7 K/mcL (1.6-8.9); Platelet Count 519 K/mcL (140-400); Red Blood Count 2.95 M/mcL (3.82-4.97); Red Cell Distribution Width 15.6 % (11.5-14.5)
[2017-03-14 08:47] LABS: BUN/Creatinine Ratio 25 (6-26); Blood Urea Nitrogen 26 mg/dL (7-20); Calcium 8.8 mg/dL (8.6-10.8); Carbon Dioxide 14 mEq/L (19-29); Chloride 103 mEq/L (98-109); Glucose 91 mg/dL (70-99); Osmolality,Calculated 268 (280-300); Potassium 3.7 mEq/L (3.5-4.5); Sodium 127 mEq/L (136-145); eGFR For African Americans > 60 (> 60); eGFR For Non-African Americans 55 (> 60)
[2017-03-14] MEDS: Fenofibrate 54 MG TABLET PO SCH (09:38)
[2017-03-14] MEDS: Folic Acid 1 MG TABLET PO SCH (09:39)
[2017-03-14] MEDS: Thiamine (B-1) 100 MG TABLET PO SCH (09:39)
[2017-03-14] MEDS: Vitamin B Complex/Vit C/Vit E 1 EACH TABLET PO SCH (09:39)
[2017-03-14] MEDS: Aspirin 81 MG TAB.CHEW PO SCH (09:39)
[2017-03-14] MEDS: Ranolazine 500 MG TAB.ER.12H PO SCH (09:39)
[2017-03-14] MEDS: Isosorbide MONOnitrate (24 HR) 30 MG TAB.ER.24H PO SCH (09:40)
[2017-03-14] MEDS: (Ezetimibe [Zetia] 10 MG) PO SCH (09:41)
[2017-03-14] MEDS: 0.9 % Sodium Chloride 1,000 ML IVC SCH (09:51)
[2017-03-14 10:46] VITALS: BP 105/62
--- NOTE | 2017-03-14 11:07 | Discharge Summary ---
Date of Encounter: 03/14/17 Time of Encounter: 11:05 - Discharge Diagnosis (1) Ataxia Priority: Primary Status: Acute (2) Hyponatremia Priority: Primary Status: Acute (3) UTI (urinary tract infection) Priority: Primary Status: Acute Qualifiers: Urinary tract infection type: acute cystitis Hematuria presence: without hematuria Qualified Code(s): N30.00 - Acute cystitis without hematuria (4) Acute kidney injury Priority: Secondary Status: Acute (5) Hypokalemia Priority: Secondary Status: Acute - Discharge Medications Prescriptions: Folic Acid 1 mg PO DAILY #30 tablet Sulfamethoxazole/Trimeth DS [Bactrim DS] 1 each PO BID 4 Days Thiamine (B-1) [Vitamin B-1] 100 mg PO DAILY #30 tablet Home Medications: Albuterol Sulfate [Albuterol Inhaler] 2 puff IH Q4HR PRN 08/12/16 [History] Aspirin 81 mg PO DAILY 08/12/16 [History] Atenolol [Tenormin] 50 mg PO DAILY 08/12/16 [History] Clopidogrel [Plavix] 75 mg PO DAILY 08/12/16 [History] Duloxetine HCl [Cymbalta] 60 mg PO DAILY 08/12/16 [History] Ezetimibe [Zetia] 10 mg PO DAILY 08/12/16 [History] Fenofibrate [Lofibra] 160 mg PO DAILY 08/12/16 [History] Isosorbide MONOnitrate (24 HR) [Imdur] 30 mg PO DAILY 08/12/16 [History] Levothyroxine [Synthroid] 50 mcg PO 0630 08/12/16 [History] Nitroglycerin [Nitrostat] 0.4 mg SL Q5M PRN 08/12/16 [History] Potassium Chloride 20 meq PO DAILY 08/12/16 [History] Ranolazine [Ranexa] 1,000 mg PO BID 08/12/16 [History] hydroCHLOROthiazide [Hydrochlorothiazide] 25 mg PO DAILY 08/12/16 [History] Pravastatin Sodium [Pravachol] 20 mg PO HS 03/11/17 [History] Folic Acid 1 mg PO DAILY #30 tablet 03/14/17 [Rx] Sulfamethoxazole/Trimeth DS [Bactrim DS] 1 each PO BID 4 Days 03/14/17 [Rx] Thiamine (B-1) [Vitamin B-1] 100 mg PO DAILY #30 tablet 03/14/17 [Rx] Allergies/Adverse Reactions: Allergies atorvastatin [From Lipitor] Adverse Reaction (Verified 03/11/17 13:32) Muscle Pain codeine Adverse Reaction (Verified 03/11/17 13:32) nausea vomiting Procedures/tests Complete & Pending: Procedures Performed prior 72 hours Category Date Time Status Retroperitoneal Ultrasound - Complete [US Exams 03/12/17 16:00 Completed retroperitoneal comp] [US] Stat Date of admission: 03/12/17 00:33 Primary care physician: Maren Perkins MD Consults: 03/12/17 09:21 Consult to Physical Therapy [CONS] Routine Comment: Evaluate, develop and implement POC Reason for Consult: recent falls; difficulty walking OT [Consult to Occupational Therapy] [CONS] Routine Comment: Evaluate, develop and implement POC Reason for Consult: recently falling; difficulty walking Discharging clinician: Chay Becerra Anticipated date of discharge: 03/14/17 - Patient Status Disposition: Home, Self-Care Condition: Fair Functional capacity at discharge: independent ambulation Overall status at discharge: patient is back to baseline - Discharge Instructions Follow Up With: Maren Perkins MD [Primary Care Provider] - 03/24/17 2:40 pm - Diet and Activity Activity: resume usual activities as tolerated Diet: advance to your usual diet Interval History: Ms. Moreira is a 61 year old female who presents with a 3 week history of weakness , frequent falling, and occasional ataxia. Because of persistent symptoms, she came to the ER today for evaluation. She was found to have evidence of UTI, hyponatremia, and leukocytosis. She was given a dose of antibiotics, fluid bolus, and underwent CT scan of the head and chest x-ray. Findings were unremarkable otherwise. She was subsequently admitted to hospitalist service. She denies any history of seizures, fevers, focal weakness, numbness, or paralysis. She used to drink alcohol but quit about 2 months ago. She denies any heavy use. However, upon further questioning, she drank about 2-3 drinks per night every night for many years. I suspect her hyponatremia very well may be due to her alcohol abuse as well as her thiazide diuretic. She has been on this diuretic for quite some time and denies any prior history of hyponatremia. She is also a long-time smoker and appears to be euvolemic. she was treated with IVF and IV ceftriaxone. urine cx grew E> coli which was sensitive to ceftriaxone PT OT consult was placed according to which she has no additional needs at [place]. MRI head was also done which showed no acute finding,given the h/o alcohol abuse , we checked for folate, emmanuel b12 which was not deficient. she improved clinically and is being dc today in stable condition with oral antibiotics. she had peristent leucocytosis with no fever, however she was noted to have significant improvement, hence she is being dc today and will f/u with PCP with repeat cbc. Hospital course: Ms. Moreira is a 61 year old female - Time Spent with Patient Total time spent providing and/or coordinating discharge services: - Constitutional Vitals: Temp Pulse Resp BP Pulse Ox 97.5 F L 71 16 105/62 97 03/14/17 10:38 03/14/17 10:38 03/14/17 10:38 03/14/17 10:38 03/14/17 10:38 General appearance: Present: cooperative, A&O X 3, pleasant, no acute distress, answers questions appropriately
--- NOTE | 2017-03-15 12:28 | Electrocardiograph Report ---
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
--- NOTE | 2017-03-16 17:27 | Electrocardiograph Report ---
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
== END 2017-03-14 12:10 | disposition home or self-care (01) | DRG 683 ==
LOC: EMEROO 13:31 → 3ANU 13:31 → SUATTDRO 03-12 00:33
PROVIDERS: ADMIT Internal Medicine; ATTEND Internal Medicine